=== PATIENT | male | born 1965 | race Two or more races ===

== ENCOUNTER 2025-08-17 22:11 | Inpatient (IN) | payer BC, OTHER ==
[~2025-08-17] VITALS: Ht 185.4 cm; Wt 94.5 kg
[2025-08-17] MEDS ORDERED: MORPHINE SULFATE INJ 4 MG/ML DISP.SYRIN ONE (22:30)
[2025-08-17] MEDS ORDERED: ONDANSETRON HCL/PF 4 MG/2 ML VIAL ONE (22:30)
[2025-08-17] MEDS: IV NS 0.9% 500 ML BAG IV ONE (22:40)
[2025-08-17] MEDS: MORPHINE SULFATE INJ 2 MG/ML DISP.SYRIN IV ONE (22:40)
[2025-08-17] MEDS: ONDANSETRON HCL/PF 4 MG/2 ML VIAL IVP ONE (22:40)
[2025-08-17 22:45] LABS: PLATELET COUNT (AUTO) 210 K/uL (150-450); RED BLOOD CELL COUNT(AUTO) 4.51 MIL/uL (4.5-6.0); RED CELL DISTRIBUTION WIDTH 13.8 % (11.5-15.0); WHITE BLOOD COUNT (AUTO) 10.2 K/uL (4.3-11.0)
[2025-08-17 22:53] LABS: CALCIUM, SERUM 8.7 mg/dL (8.5-10.1); CREATININE 1.4 mg/dL (0.6-1.3); SODIUM SERUM 136.0 mmol/L (136-145); UREA NITROGEN, BLOOD 12.0 mg/dL (7-18)
[2025-08-17 22:59] LABS: ASPARTATE AMINOTRANSFERASE 27.0 U/L (15-37); INR 1.06 (0.91-1.10); TOTAL PROTEIN, SERUM 8.1 g/dL (6.4-8.2)
[2025-08-17] MEDS ORDERED: KETOROLAC TROMETHAMINE INJ 30 MG/ML VIAL ONE (23:41)
[2025-08-17] MEDS: KETOROLAC TROMETHAMINE INJ 30 MG/ML VIAL IV ONE (23:45)
[2025-08-18 00:10] LABS: APPEARANCE,URINE CLEAR (CLEAR); BLOOD, URINE 1+ Ery/uL (NEGATIVE); LEUKOCYTE ESTERASE ,URINE NEGATIVE (NEGATIVE); NITRITE, URINE NEGATIVE (NEGATIVE); UGLUCOSE NEGATIVE (NEGATIVE)
[2025-08-18 00:28] LABS: ADD URINE CULTURE YES
[2025-08-18 00:29] LABS: FINE GRANULAR CASTS,URINE Few /LPF (None Seen)
[2025-08-18] MEDS ORDERED: MORPHINE SULFATE INJ 4 MG/ML DISP.SYRIN ONE (00:57)
[2025-08-18] MEDS: MORPHINE SULFATE INJ 2 MG/ML DISP.SYRIN IV ONE (01:03)
[2025-08-18] MEDS ORDERED: KETOROLAC TROMETHAMINE INJ 30 MG/ML VIAL ONE (02:32)
[2025-08-18] MEDS: KETOROLAC TROMETHAMINE INJ 30 MG/ML VIAL IV ONE (02:36)
[2025-08-18] MEDS ORDERED: ONDANSETRON HCL/PF 4 MG/2 ML VIAL IVP PRN (03:30)
[2025-08-18] MEDS ORDERED: MAGNESIUM HYDROXIDE 30 ML UDC PO PRN (03:30)
[2025-08-18 04:00] VITALS: BP 159/96; TEMP 99; O2SAT 99
[2025-08-18 04:05] VITALS: BP 159/96; TEMP 99; O2SAT 99
[2025-08-18] MEDS: HYDROCODONE/APAP 5/325MG TABLET PO PRN (04:38)
[2025-08-18 07:00] VITALS: BP 132/90; TEMP 98.4; O2SAT 95
[2025-08-18] MEDS: PANTOPRAZOLE 40 MG TABLET.DR PO SCH (07:45)
[2025-08-18] MEDS ORDERED: NITR100C6 PO (08:18)
[2025-08-18] MEDS: PREGABALIN 25 MG CAPSULE PO SCH (08:49)
[2025-08-18] MEDS: CARISOPRODOL 350 MG TABLET PO PRN (12:05)
[2025-08-18] MEDS: METHOCARBAMOL (500MG) 500 MG TABLET PO PRN (14:55)
[2025-08-18] MEDS: HYDROCODONE/APAP 10/325MG TABLET PO PRN (15:51)
[2025-08-18 16:00] VITALS: BP 161/98; TEMP 98.2; O2SAT 97
[2025-08-18] MEDS: ACETAMINOPHEN 325 MG TABLET PO PRN (17:48)
[2025-08-18] MEDS: GABAPENTIN 400 MG CAPSULE PO SCH (18:56)
[2025-08-18 20:00] VITALS: BP 168/106; TEMP 98.2; TEMP 99.3; O2SAT 98
[2025-08-19 06:39] LABS: PLATELET COUNT (AUTO) 231 K/uL (150-450); RED BLOOD CELL COUNT(AUTO) 4.41 MIL/uL (4.5-6.0); RED CELL DISTRIBUTION WIDTH 13.6 % (11.5-15.0); WHITE BLOOD COUNT (AUTO) 10.9 K/uL (4.3-11.0)
[2025-08-19 06:42] LABS: CALCIUM, SERUM 8.8 mg/dL (8.5-10.1); CREATININE 1.3 mg/dL (0.6-1.3); SODIUM SERUM 137.0 mmol/L (136-145); UREA NITROGEN, BLOOD 15.0 mg/dL (7-18)
[2025-08-19 07:05] LABS: CREATINE KINASE, TOTAL 190.0 U/L (39-308)
[2025-08-19 07:08] LABS: ASPARTATE AMINOTRANSFERASE 20.0 U/L (15-37); PHOSPHORUS 3.5 mg/dL (2.5-4.9); TOTAL PROTEIN, SERUM 8.2 g/dL (6.4-8.2)
[2025-08-19 08:00] VITALS: BP 160/97; TEMP 100.6; O2SAT 97
[2025-08-19] MEDS: METHOCARBAMOL (500MG) 500 MG TABLET PO SCH (12:24)
[2025-08-19] MEDS: GABAPENTIN 400 MG CAPSULE PO SCH (12:24)
[2025-08-19 18:23] LABS: APPEARANCE,URINE CLEAR (CLEAR); BLOOD, URINE 2+ Ery/uL (NEGATIVE); LEUKOCYTE ESTERASE ,URINE NEGATIVE (NEGATIVE); NITRITE, URINE NEGATIVE (NEGATIVE); UGLUCOSE NEGATIVE (NEGATIVE)
[2025-08-19 18:32] LABS: CREATININE, URINE 275.2 MG/DL (30.0-125.0); URINE SODIUM, RANDOM 27.0 mmol/l (40-220); URINE TOTAL PROTEIN 513.3 mg/dL (0-11.9)
[2025-08-19 18:46] LABS: ADD URINE CULTURE YES
[2025-08-19 18:47] LABS: FINE GRANULAR CASTS,URINE Few /LPF (None Seen)
[2025-08-19 20:00] VITALS: BP 168/96; TEMP 100.6; O2SAT 97
[2025-08-20 04:06] VITALS: BP 150/92
[2025-08-20 08:00] VITALS: BP 139/89; TEMP 97.9; O2SAT 99
[2025-08-20 10:07] LABS: PTH, INTACT 59 pg/mL (15-65)
[2025-08-20] MEDS: GABAPENTIN 300 MG CAPSULE PO SCH (12:46)
[2025-08-20] MEDS: METHOCARBAMOL (500MG) 500 MG TABLET PO SCH (12:46)
[2025-08-20] MEDS: LIDOCAINE 5% (PATCH) 1 EA PATCH TP SCH (12:47)
[2025-08-20 17:38] VITALS: BP 145/91; TEMP 98
[2025-08-20 20:00] VITALS: BP 151/89; TEMP 98.1; O2SAT 98
[2025-08-21 06:58] LABS: ASPARTATE AMINOTRANSFERASE 67.0 U/L (15-37); CALCIUM, SERUM 8.7 mg/dL (8.5-10.1); CREATININE 1.5 mg/dL (0.6-1.3); PHOSPHORUS 3.4 mg/dL (2.5-4.9); PLATELET COUNT (AUTO) 349 K/uL (150-450); RED BLOOD CELL COUNT(AUTO) 4.53 MIL/uL (4.5-6.0); RED CELL DISTRIBUTION WIDTH 13.7 % (11.5-15.0); SODIUM SERUM 135.0 mmol/L (136-145); TOTAL PROTEIN, SERUM 8.3 g/dL (6.4-8.2); UREA NITROGEN, BLOOD 27.0 mg/dL (7-18); WHITE BLOOD COUNT (AUTO) 10.2 K/uL (4.3-11.0)
[2025-08-21 08:00] VITALS: BP 163/99; TEMP 97.7; O2SAT 98
[2025-08-21 13:09] LABS: *SPE A/G RATIO 0.6 (0.7-1.7); *SPE ALBUMIN 2.8 g/dL (2.9-4.4); *SPE ALPHA-1-GLOBULIN 0.7 g/dL (0.0-0.4); *SPE ALPHA-2-GLOBULIN 0.9 g/dL (0.4-1.0); *SPE BETA GLOBULIN 1.2 g/dL (0.7-1.3); *SPE GLOBULIN, TOTAL 4.4 g/dL (2.2-3.9); *SPE M-SPIKE Not Observed g/dL (Not Observed); *SPE PROTEIN TOTAL 7.2 g/dL (6.0-8.5); *SPEGAMMA GLOBULIN 1.5 g/dL (0.4-1.8)
[2025-08-21] MEDS ORDERED: ALPRAZOLAM 0.25 MG TABLET PO PRN (13:30)
[2025-08-21] MEDS ORDERED: NALOXONE HCL 0.4 MG/ML AMPUL IV PRN (13:30)
[2025-08-21 16:00] VITALS: BP 168/106; TEMP 98.4; O2SAT 98
[2025-08-21] MEDS: KETOROLAC TROMETHAMINE INJ 30 MG/ML VIAL IV SCH (17:25)
[2025-08-21] MEDS: DICLOFENAC TOPICAL 100 GM TUBE TP SCH (17:26)
[2025-08-21 20:00] VITALS: BP 154/98; TEMP 98.8; O2SAT 97
[2025-08-21] MEDS: METHOCARBAMOL (500MG) 500 MG TABLET PO SCH (20:33)
[2025-08-21] MEDS ORDERED: oxyCODONE HCL SR 10MG TAB.SR.12H PO SCH (21:00)
[2025-08-22 07:55] LABS: ASPARTATE AMINOTRANSFERASE 75.0 U/L (15-37); CALCIUM, SERUM 8.3 mg/dL (8.5-10.1); CREATININE 1.5 mg/dL (0.6-1.3); PHOSPHORUS 4.3 mg/dL (2.5-4.9); SODIUM SERUM 135.0 mmol/L (136-145); TOTAL PROTEIN, SERUM 7.9 g/dL (6.4-8.2); UREA NITROGEN, BLOOD 33.0 mg/dL (7-18)
[2025-08-22 08:56] VITALS: BP 148/97; TEMP 97.9; O2SAT 97
[2025-08-22] MEDS: IV NS 0.9% 1,000 ML IV PRN (12:12)
[2025-08-22 16:00] VITALS: BP 157/92; TEMP 98.1; O2SAT 97
[2025-08-22 20:00] VITALS: BP 135/91; TEMP 97.9; O2SAT 99
[2025-08-22 20:54] VITALS: BP 135/91; TEMP 97.9; O2SAT 99
[2025-08-23 07:22] LABS: ASPARTATE AMINOTRANSFERASE 61.0 U/L (15-37); CALCIUM, SERUM 7.9 mg/dL (8.5-10.1); CREATININE 1.3 mg/dL (0.6-1.3); PHOSPHORUS 2.9 mg/dL (2.5-4.9); SODIUM SERUM 136.0 mmol/L (136-145); TOTAL PROTEIN, SERUM 7.3 g/dL (6.4-8.2); UREA NITROGEN, BLOOD 33.0 mg/dL (7-18)
[2025-08-23 08:00] VITALS: BP 133/85; TEMP 98.2; O2SAT 99
[2025-08-23] MEDS ORDERED: PRED20TA PO (12:34)
[2025-08-23] MEDS ORDERED: GABA600T12 PO (12:34)
[2025-08-23] MEDS ORDERED: PANT40TA49 PO (12:34)
[2025-08-23] MEDS ORDERED: DICLOFENAC TP (12:34)
[2025-08-23] MEDS ORDERED: METH-649 PO (12:34)
[2025-08-23] MEDS ORDERED: KETO10TA2 PO (12:34)
[2025-08-23] MEDS ORDERED: TRAM50TA2 PO (12:34)
[2025-08-23] MEDS ORDERED: CARI350T27 PO (12:34)
[2025-08-23 16:00] VITALS: BP 143/83; TEMP 98.8; O2SAT 96
== END 2025-08-23 18:00 | disposition home health service (06) | DRG 551 ==
LOC: ER 22:13 → MED 08-18 03:32
PROVIDERS: ADMIT Nurse Practitioner Acute Care; ATTEND Nurse Practitioner Acute Care
DX: M51.16 Intervertebral disc disorders with radiculopathy, lumbar region (principal); N17.0 Acute kidney failure with tubular necrosis; I16.0 Hypertensive urgency; M48.062 Spinal stenosis, lumbar region with neurogenic claudication; M25.551 Pain in right hip; Z87.440 Personal history of urinary (tract) infections; M16.11 Unilateral primary osteoarthritis, right hip; M70.61 Trochanteric bursitis, right hip; E83.89 Other disorders of mineral metabolism; Z98.890 Other specified postprocedural states; V89.2XXS Person injured in unspecified motor-vehicle accident, traffic, sequela; R74.01 Elevation of levels of liver transaminase levels; R31.9 Hematuria, unspecified; Z91.040 Latex allergy status; M25.751 Osteophyte, right hip; G62.9 Polyneuropathy, unspecified
CPT/HCPCS: 36415; 72148-TC; 73564-TC; 76770-TC; 80048-TC; 80053-TC; 80076-TC; 81001; 82550-TC; 82570-TC; 83690-TC; 83735-TC; 83970; 84100-TC; 84155; 84165; 84300-TC; 85025-TC; 85730-TC; 87086-TC; 93971-TC; 97110-TC; 97116-TC; 97530-TC; 97535-TC; A4223; G0378; J1885; J2270; J2405; J7030; J7040